=== PATIENT | male | born 1955 | race African-American/Black ===

== ENCOUNTER 2021-01-15 19:08 | Emergency (ER) | payer OTHER ==
[2021-01-15 19:25] LABS: BASOPHIL 0.2 % (0-2); EOSINOPHIL 0.1 % (0-7); HCT 46.8 % (42.0-52.0); LYMPHOCYTE 15.4 % (15-48); MCH 33.1 pg (25.0-31.0); MCHC 32.1 g/dL (32.0-36.0); MCV 103.3 fL (78.0-100.0); MONOCYTE 4.8 % (0-12); MPV 10.2 fL (6.0-9.5); NEUTROPHIL 78.6 % (41-80); NRBC 0; PLT 198 K/uL (150-400); RBC 4.53 M/uL (4.70-6.00); RDW 13.5 % (11.5-14.0); WBC 9.4 K/uL (4.0-10.5)
[2021-01-15 19:27] LABS: BILIRUBIN NEGATIVE (NEGATIVE); BLOOD 3+ Ery/uL (NEGATIVE); CLARITY CLEAR (CLEAR); COLOR YELLOW (YELLOW); GLUCOSE (U) TRACE mg/dL (NORMAL); LEUKOCYTES NEGATIVE Leu/uL (NEGATIVE); NITRITE NEGATIVE (NEGATIVE); PROTEIN 2+ mg/dL (NEGATIVE); SPECIFIC GRAVITY >=1.030 (1.001-1.030); UROBILINOGEN 0.2 mg/dL (0.2-1.0); pH 5.5 (5.0-9.0)
[2021-01-15 19:39] LABS: INR 1.43 (0.9-1.2); PROTHROMBIN TIME 16.7 SECONDS (11.8-13.4); PTT 38.4 SECONDS (24.4-34.7)
[2021-01-15 19:48] LABS: BACTERIA 1+; SPERM PRESENT
[2021-01-15 19:51] LABS: AMPHETAMINES NEGATIVE (NEGATIVE); BARBITURATES NEGATIVE (NEGATIVE); ECSTASY (MDMA) NEGATIVE (NEGATIVE); MARIJUANA (THC) NEGATIVE (NEGATIVE); METHADONE NEGATIVE (NEGATIVE); OPIATES NEGATIVE (NEGATIVE); OXYCODONE NEGATIVE (NEGATIVE)
[2021-01-15 19:53] LABS: CKMB 4.3 ng/mL (0.0-3.6)
[2021-01-15 19:54] LABS: D-DIMER 7.61 ug/mLFEU (0.00-0.41)
[2021-01-15 19:56] LABS: ALBUMIN 2.3 g/dL (3.4-5.0); BILIRUBIN - TOTAL 0.3 mg/dL (0.2-1.0); BUN/CREAT RATIO (CALC) 22.8 RATIO; CREATININE 1.36 mg/dL (0.67-1.17); GLOBULIN (CALCULATION) 3.9 g/dL; POTASSIUM 2.8 mmol/L (3.5-5.1); TOTAL PROTEIN 6.2 g/dL (6.4-8.2)
[2021-01-15 19:58] LABS: LACTIC ACID 13.7 mmol/L (0.4-1.9)
[2021-01-15 22:33] LABS: BUN/CREAT RATIO (CALC) 22.3 RATIO; CREATININE 1.39 mg/dL (0.67-1.17); MAGNESIUM 3.2 mg/dL (1.8-2.4); PHOSPHORUS 5.3 mg/dL (2.6-4.7)
[2021-01-15 22:39] LABS: POTASSIUM 4.7 mmol/L (3.5-5.1)
== END 2021-01-16 02:15 | disposition other institution (70) ==
LOC: FER 19:08
PROVIDERS: Emergency Medicine
DX: I46.9 Cardiac arrest, cause unspecified (principal); U07.1 COVID-19; I21.4 Non-ST elevation (NSTEMI) myocardial infarction; I48.91 Unspecified atrial fibrillation; J44.9 Chronic obstructive pulmonary disease, unspecified; Z88.8 Allergy status to other drugs, medicaments and biological substances
CPT/HCPCS: 36415; 36600; 70450; 71045; 71275; 80048; 80053; 80305; 81001; 82550; 82553; 82803; 83605; 83735; 84100; 84145; 84443; 84484; 85025; 85379; 85610; 85730; 87040; 87088; 93005; 96365; 96366; 96368; 96375; C9399; J1644; J2543; J2930; J3370; J3475; J3480; J7050; J7121; Q9967; U0002